=== PATIENT | female | born 1995 | race Caucasian/White ===

== ENCOUNTER 2020-05-16 14:19 | Emergency (ER) | payer OTHER, SELFPAY ==
[~2020-05-16] VITALS: Ht 162.6 cm; Wt 63.5 kg
[2020-05-16 14:38] VITALS: Ht 162.6 cm; Wt 63.5 kg
[2020-05-16 14:50] VITALS: BP 111/76
== END 2020-05-16 14:50 | disposition home or self-care (01) ==
LOC: ED 14:19
DX: U07.1 COVID-19 (principal); B34.9 Viral infection, unspecified
CPT/HCPCS: U0003-CS